=== PATIENT | female | born 1935 | race Caucasian/White ===

== ENCOUNTER 2018-08-20 06:57 | Emergency (ER) | payer MEDICARE ==
[~2018-08-20] VITALS: Ht 152.4 cm; Wt 69.9 kg
[2018-08-20 06:58] VITALS: BP 199/77
--- NOTE | 2018-08-20 07:35 | NUR ---
PATIENT AMBULATED TO THE ROOM, ELIZABETH PARNELL, DENIES PAIN SAYING "IT'S TENDER, FIDEL STINGS RIGHT NOW", BLEEDING CONTROLLED WITH SRI WRAP AND GAUZE UPON ARRIVAL, SMALL SUPERFICIAL LACERATION TO LEFT MAN, CLEANED WITH STERILE SALINE, CLOSED WITH STERI STRIPS BY FRENCH GALLEGOS, GAUZE WRAPPED, FOOT CLEANED, CLEAN SOCKS PROVIDED, PATIENT TO BE DISCHARGED TO LEAVE VIA TOUR BUS.
== END 2018-08-20 08:14 ==
LOC: ED 07:51
DX: S81.812A Laceration without foreign body, left lower leg, initial encounter (principal); I10 Essential (primary) hypertension; I48.91 Unspecified atrial fibrillation; W22.8XXA Striking against or struck by other objects, initial encounter; Y93.89 Activity, other specified; Y92.89 Other specified places as the place of occurrence of the external cause; Y99.8 Other external cause status
CPT/HCPCS: 12032; 99284